=== PATIENT | female | born 2005 | race Caucasian/White ===

== ENCOUNTER 2023-03-12 21:30 | Outpatient (CLI) | payer MEDICAID, SELFPAY ==
[2023-03-12] VITALS (11 sets, daily range): BP systolic 134–191; BP diastolic 82–100; PULSE 59–78; RESP 14; BMI 35.1
--- NOTE | 2023-03-12 21:56 | USR_ITS ---
PROCEDURE INFORMATION: Exam: US Biophysical Profile Without Non-Stress Test Exam date and time: 03/12/2023 11:02 PM Age: 17 years old Clinical indication: Screening exam; Routine US screening of fetus; Third trimester (=28 weeks 0 days); ; Additional info: Decreased movement TECHNIQUE: Imaging protocol: US biophysical profile without non-stress testing. COMPARISON: No relevant prior studies available. FINDINGS: heart rate: 133 bpm presentation: Cephalic Placenta: Right and Fundal placenta without previa. Amniotic fluid: Amniotic fluid volume is low, consistent with oligohydramnios. Amniotic fluid index: CASH is 10.5 cm. BIOPHYSICAL PROFILE: breathing movement (BPP): 2/2 body movement (BPP): 2/2 tone (BPP): 2/2 Amniotic fluid (BPP): 2/2 Biophysical profile score (BPP): 8/8 MATERNAL ANATOMY: Cervix: Cervical length measures 3.8 cm. US/US OB BPP wo NST 04188 IMPRESSION: Biophysical profile score is 8/8.
[2023-03-13 00:09] VITALS: BP 154/89; PULSE 56
[2023-03-13] MEDS: acetaminophen 500 mg Tablet 1000 MG PO (00:17)
== END 2023-03-13 00:20 | disposition home or self-care (01) ==
LOC: OPOB 21:34 → OBGYN 21:37
PROVIDERS: Family Provider Nurse Practitioner Family; PCP Nurse Practitioner Family; Visit Provider Obstetrics & Gynecology
DX: O36.8190 Decreased fetal movements, unspecified trimester, not applicable or unspecified (principal); Z3A.00 Weeks of gestation of pregnancy not specified
CPT/HCPCS: 59025; 76819; 99211

== ENCOUNTER 2023-03-13 08:56 | Inpatient (IN) | payer MEDICAID, SELFPAY ==
[2023-03-13] VITALS (67 sets, daily range): BP systolic 117–176; BP diastolic 62–102; PULSE 54–106; RESP 14–17; TEMP 36.2; BMI 35.1
[2023-03-13 07:01] LABS: Basophils # 0.1 10^3/uL (0.0-0.1); Basophils % 0.6 %; Eosinophils # 0.1 10^3/uL (0.0-0.8); Eosinophils % 0.9 %; Hematocrit 37.5 % (37.0-47.0); Hemoglobin 12.1 g/dL (11.5-15.3); Lymphocytes # 2.4 10^3/uL (1.5-6.5); Lymphocytes % 26.4 %; Mean Corpuscular HGB Conc 32.3 g/dL (30.0-36.0); Mean Corpuscular Volume 80.5 fl (81-99); Mean Platelet Volume 11.3 fL (7.4-10.4); Monocytes # 0.7 10^3/uL (0.2-0.9); Monocytes % 7.1 %; Neutrophils # 5.98 10^3/uL (1.8-8.0); Neutrophils % 64.7 %; Nucleated Red Blood Cells % 0 %; Platelet Count 236 10^3/cmm (130-400); Red Blood Count 4.66 10^6/uL (4.1-5.3); Red Cell Distribution Width 12.5 % (12.1-15.1); White Blood Count 9.3 10^3/uL (4.5-13.0)
[2023-03-13 07:22] LABS: Alanine Aminotransferase 11 U/L (0-33); Albumin Level 3.6 g/dL (3.5-5.2); Alkaline Phosphatase 122 U/L (35-105); Aspartate Amino Transferase 16 U/L (0-32); Blood Urea Nitrogen 10 mg/dL (6-20); Calcium 9.5 mg/dL (8.5-10.5); Carbon Dioxide 22 mmol/L (22-29); Chloride 103 mmol/L (98-107); Globulin 3.1 g/dL (1.3-4.6); Glomerular Filtration Rate 92.4 mL/min (90-130); Glucose 73 mg/dL (65-115); Osmolality Calculated 282 mOsm/kg (285-295); Sodium 137 mmol/L (136-145); Total Bilirubin 0.2 mg/dL (0.15-1.2); Total Protein 6.7 g/dL (6.6-8.7); Uric Acid 5.8 mg/dL (2.4-5.7)
[2023-03-13 07:23] LABS: UPRO/UCREAT Ratio 0.09 mg/mg CR; Urine Creatinine 235 mg/dL (28-217); Urine Protein Random 21 mg/dL
[2023-03-13 07:33] LABS: Urine Appearance Clear (CLEAR); Urine Color Yellow (Yellow)
[2023-03-13 07:34] LABS: Add Urine Culture? No; Add Urine Microscopic? YES; Bacteria Urine TRACE /hpf; Bilirubin Urine Neg (Negative); Blood Urine 3+ (Negative); Glucose Urine UA Norm (Normal); Ketones Urine Negative (Negative); Leukocyte Esterase Urine Negative (Negative); Mucus Urine 1+ /hpf; Nitrate Urine Negative (Negative); Protein Urine Neg (Negative); Specific Gravity, Urine 1.025 (1.005-1.030); Squamous Epithelial Cell Urine 0-4 /hpf (0-5); Urobilinogen Urine Norm (Negative); WBC Urine 0-4 /hpf (0-5); pH Urine 5 (5-7)
--- NOTE | 2023-03-13 10:31 | P.HP_ITS ---
Providers/Chief Complaint Admitting Physician: Klaus Rodney MD Primary Care Provider: SOMMER Buck Chief Complaint: VAGINAL BLEEDING History of Present Illness Lauren Tubbs is a 17 year old at 39.0 weeks gestation by LMP consistent with second trimester ultrasound. Her is complicated by teen , UTI in second trimester, now with gestational hypertension with intermittent severe features. The patient sees Dr. Ramon for OB care. The patient presented to labor and delivery at [facility] due to concerns for bleeding. She was advised that it did not have any delivering doctors caregivers non medical, so she was advised to be seen elsewhere. For this reason she presented to [facility] for further evaluation. She noted that while she was at home she had spotting with some blood in the toilet and on the toilet paper. The patient admits to intermittent contractions. She denies leakage of fluid. In labor and delivery triage the patient's blood pressure was noted to be in the 130s to 160s systolic. Upon further evaluation, the patient notes that she is having headaches with seeing flashes of light that make her dizzy. She has not had elevated blood pressure during the previously. She denies any ch est pains. The patient is GBS negative by records. She is Rh- and received RhoGAM at 28 weeks gestation. Her other lab findings are normal. These will be scanned into the electronic record. Review of Systems Narrative: The patient denies nausea, vomiting, dysuria, fever, cough, sore throat. Medications/Allergies Home Medications Medication Instructions Recorded Confirmed Last Taken Type prenat.vits,gonzalo,paj-dtxf-hkoig 1 tab PO DAILY 03/12/23 03/12/23 03/11/23 History Allergies Allergy/AdvReac Type Severity Reaction Status Date / Time azithromycin [From Zithromax] Allergy ALGY-Rash Verified 03/13/23 06:24 PFSH Acute PFSH: Surgical History (Updated 03/13/23 @ 10:32 by Klaus Rodney MD) History of appendectomy History of placement of ear tubes Hx of tonsillectomy Social History (Updated 03/13/23 @ 16:29 by Klaus Rodney MD) Smoking and tobacco status: never smoked Alcohol intake: never Substance/Drug Use: never Female Reproductive History: : 1 Vitals/I&O/Wt Last Vital Signs Pulse 93 03/13/23 10:14 Resp 17 03/13/23 08:49 BP 139/80 03/13/23 10:14 O2 Del Method Room Air 03/13/23 09:01 Weight last 48 hrs Weight 186 lb Physical Exam Narrative: General: Alert and oriented x3 Eyes: Pupils equal round and reactive to light and accommodation Mouth: Mucous membranes moist, pharynx non-erythematous Cardiac: Regular rate and rhythm without murmurs Lungs: Clear to auscultation bilaterally without wheezes, crackles or rhonchi Abdomen: Soft, non-tender, fundus consistent with gestational age : Cervical exam: 2/50/-3/soft/mid/vertex Extremities: Trace edema in the bilateral lower extremities Neuro: Brisk reflexes noted in the deep tendon reflexes Data 03/13/23 06:40 03/13/23 06:40 A&P Assessment and plan (1) Supervision of normal intrauterine in primigravida: I had a discussion with the patient regarding her lab findings that showed that she does not have findings consistent with preeclampsia based on the urine protein creatinine ratio, however uric acid levels are starting to increase. Her blood pressures have been in the severe range multiple times during triage and for this reason I am concerned that she is moving towards preeclampsia. The patient does have brisk reflexes and is symptomatic with intermittent headaches and seeing flashes of light. At this point she has gestational hypertension with intermittent severe features. I discussed the recommendations for induction of labor due to this and she is in agreement to proceed with induction of labor. Her Delacruz score is 5 at this time and since she is david every 3 to 6 minutes, I feel that we can proceed with IV Pitocin for induction. The patient will have breakfast and then we will get her started. If she is not making change, then we can back up and make further changes. We will start the antihypertensive protocol. We will decrease overall activity to help decrease her blood pressures. The patient is GBS negative. All questions were answered. The patient and her mother are in agreement with current plan of care. (2) Gestational hypertension: Attestations Medical Necessity Statement*: The patient will be here for greater than 2 midnights due to routine intrapartum and management of labor and delivery. Coding Level of Care Code Acute Code for Chg Fwd Diagnoses Supervision of normal intrauterine in primigravida Z34.00 Gestational hypertension O13.9
[2023-03-13] MEDS: dextrose 5%-lactated ringers 1,000 ML 125 ML IV (10:34)
[2023-03-13 15:26] LABS: Amphetamines Screen Urine Negative (Negative); Barbiturates Screen Urine Negative (Negative); Benzodiazepines Screen Urine Negative (Negative); Cocaine Screen Urine Negative (Negative); Opiate Screen Urine Negative (Negative); PCP Screen Urine Negative (Negative); THC Screen Urine Negative (Negative)
[2023-03-13] MEDS: miSOPROStol 100 mcg tablet 25 MCG VAGINAL (20:09)
[2023-03-14] VITALS (58 sets, daily range): BP systolic 121–177; BP diastolic 60–114; PULSE 62–125; RESP 16–18; TEMP 35.5–37; O2SAT 97–99
[2023-03-14] MEDS: miSOPROStol 100 mcg tablet 25 MCG VAGINAL ×2 (00:09→04:09)
--- NOTE | 2023-03-14 06:49 | PM.PN ---
Subjective Subjective: The patient is starting to feel contractions over the last hour. She feels well otherwise. Her blood pressures have been in a good range. She denies any chest pains or shortness of breath at this time. Vitals/I&O/Wt Last Vital Signs Temp 97.2 F L 03/13/23 22:05 Pulse 86 03/14/23 06:14 Resp 17 03/13/23 08:49 BP 138/79 03/14/23 06:14 O2 Del Method Room Air 03/14/23 06:41 03/13/23 03/13/23 03/14/23 14:59 22:59 06:59 Intake Total 25.867 / 25.867 1091 / 1116.867 Balance 25.867 / 25.867 1091 / 1116.867 Weight last 48 hrs Weight 186 lb Physical Exam Narrative: General: Alert and oriented x3 Cardiac: Regular rate and rhythm without murmurs Lungs: Clear to auscultation bilaterally without wheezes, crackles or rhonchi Abdomen: Soft, mild lower uterine tenderness to palpation, fundus consistent with gestational age Extremities: Trace edema in the bilateral lower extremities Data 03/13/23 06:40 03/13/23 06:40 A&P Assessment and plan (1) Supervision of normal intrauterine in primigravida: The patient was started on IV Pitocin yesterday morning and was having regular contractions, however did not make change by the evening. For this reason the IV Pitocin was stopped and she was allowed to eat dinner. We then we started her on Cytotec as her contractions had spaced out. The patient received 3 doses of Cytotec overnight with her last being at 4:09 AM. The patient is now david every 2 to 4 minutes and they are becoming more painful. Her last check she was 370/-3. We will plan to see how she does at 8:00 and if needed augment labor with Pitocin. If she continues to make change on her own, then this will not be needed. The patient may have a laboring epidural when desired. (2) Gestational hypertension: The patient's blood pressures have decreased well with limited activity. They are now no longer in the severe range. We will continue to keep the lights low and activity levels down. Continue with antihypertensive protocol as needed. Attestations Medical Necessity Statement*: The patient continues need inpatient care and her stay will cross 2 midnights for routine intrapartum and management of labor and delivery. Coding Level of Care Code Acute Code for Chg Fwd Diagnoses Supervision of normal intrauterine in primigravida Z34.00 Gestational hypertension O13.9
[2023-03-14] MEDS: labetalol 5 mg/mL SDV 20mL 20 MG IVP ×2 (08:50→09:20)
[2023-03-14] MEDS: butorphanol 2 mg/mL SDV 1 mL 1 MG IVP (09:01)
[2023-03-14] MEDS: lactated ringers 1,000 ML 999 ML IV (09:03)
--- NOTE | 2023-03-14 10:21 | P.ANES_ITS ---
Anesthesia Procedures Procedure/Date: 03/14/23 labor epidural Epidural: Time Out Performed: Yes Consents Signed: Procedure Consent Consent: from patient, risks and benefits reviewed and patient agrees to proceed Lumbar Level: L3-L4 Epidural position: sitting Epidural procedure: sterile prep of area, 1% lidocaine to numb the area, 18 g needle, negative for paresthesia passed, test dose given, 1.5% xylocaine 1:200k epi, placed PCEA, no systemic response, sterile dressing applied, L.U.D. no apparent complications a nd 0.2% Ropiavacaine @ mls/hr (13) Additional Comments: HENRIQUE at 6, taped at 13 at skin.
--- NOTE | 2023-03-14 10:22 | P.ANESASSM_ITS ---
Pre-Anesthetic Assessment Height/Weight: Height 1.55 m Weight 84.368 kg Temp Pulse Resp BP Pulse Ox O2 Del Method 96.6 F L 79 17 163/114 99 Room Air 03/14/23 07:46 03/14/23 10:20 03/13/23 08:49 03/14/23 10:20 03/14/23 10:16 03/14/23 06:41 Preop Diagnosis: IUP epidural Familial anesthetic complications: none Was Beta Verena taken within 24 hours: N/A Was Clonidine taken within 24 hours: N/A Last intake: currently on clears Social No alcohol and No tobacco Exam alert and oriented x 3 Airway Submandibular: within normal limits Cervical ROM: within normal limits Mallampati: Class III Dentition: full History/ROS No significant history except as noted Pulmonary None reported CV/HEM Hypertension (gestational) None reported Hepatic None reported GI None reported Metabolic None reported Musc/skel None reported Neuropsych None reported Anesthetic Plan ASA status: 2 Anesthesia: Anesthesia Evaluation and Regional (specify below) Medications/Allergies Home Medications Medication Instructions Recorded Confirmed Last Taken Type prenat.vits,gonzalo,nod-gbhn-wctrb 1 tab PO DAILY 03/12/23 03/12/23 03/11/23 History Allergies Allergy/AdvReac Type Severity Reaction Status Date / Time azithromycin [From Zithromax] Allergy ALGY-Rash Verified 03/13/23 06:24 Current Medications Generic Name Dose Route Start Last Admin Trade Name Freq PRN Reason Stop Dose Admin Butorphanol Tartrate 1 mg 03/13/23 08:49 03/14/23 09:01 Butorphanol 2 Mg/Ml Sdv 1 Ml IVP 1 mg Q2H PRN Administration SEVERE PAIN Dextrose/Lactated Ringer's 1,000 mls @ 125 mls/hr 03/13/23 09:00 03/13/23 1 9:39 Dextrose 5%-Lactated Ringers IV Infused .Q8H KIKA Infusion Oxytocin 30 unit in 500 mls @ 1 mls/hr 03/13/23 10:00 03/13/23 19:40 Pitocin IV Not Given .Q24H KIKA Protocol 1 MILLIUNIT/MIN Oxytocin 30 unit/ Sodium 503 mls @ 1 mls/hr 03/13/23 10:00 03/13/23 18:10 Chloride IV 0 mls/hr .Q24H KIKA 0 mls/hr Titration Protocol Lactated Ringer's 1,000 mls @ 999 mls/hr 03/14/23 08:51 03/14/23 09:03 Lactated Ringers IV 999 mls/hr .Q1H1M PRN Administration See label comments Labetalol HCl 20 mg 03/13/23 08:49 03/14/23 09:20 Labetalol 5 Mg/Ml Sdv 20ml IVP 20 mg PRN PRN Administration HYPERTENSION Protocol Misoprostol 25 mcg 03/13/23 23:37 03/14/23 04:09 Misoprostol 100 Mcg Tablet VAGINAL 25 mcg Q4H PRN Administration induction PFSH Anesthesia Surgical History (Updated 03/13/23 @ 10:32 by Klaus Rdoney MD) History of appendectomy History of placement of ear tubes Hx of tonsillectomy Social History (Updated 03/13/23 @ 16:29 by Klaus Rodney MD) Smoking and tobacco status: never smoked Alcohol intake: never Substance/Drug Use: never Female Reproductive History : 1 Data Anesthesia 03/13/23 06:40 03/13/23 06:40 Short CBC 03/13/23 Range/Units 06:40 WBC 9.3 (4.5-13.0) 10^3/uL Hgb 12.1 (11.5-15.3) g/dL Hct 37.5 (37.0-47.0) % MCV 80.5 L (81-99) fl Plt Count 236 (130-400) 10^3/cmm Neut % (Auto) 64.7 % Neut # (Auto) 5.98 (1.8-8.0) 10^3/uL BMP 03/13/23 06:40 Sodium 137 Potassium 4.0 Chloride 103 Carbon Dioxide 22 BUN 10 Creatinine 0.8 Glucose 73 Calcium 9.5 Liver Function 03/13/23 Range/Units 06:40 Total Bilirubin 0.2 (0.15-1.2) mg/dL AST 16 (0-32) U/L ALT 11 (0-33) U/L Alkaline Phosphatase 122 H (35-105) U/L Albumin 3.6 (3.5-5.2) g/dL Urine 03/13/23 Range/Units 06:40 Urine Color Yellow (Yellow) Urine Appearance Clear (CLEAR) Urine pH 5 (5-7) Ur Specific [place] 1.025 (1.005-1.030) Urine Protein Neg (Negative) Urine Glucose (UA) Norm (Normal) Urine Ketones Negative (Negative) Urine Nitrate Negative (Negative) Urine Bilirubin Neg (Negative) Ur Leukocyte Esterase Negative (Negative) Urine RBC 5-10 H (0-2) /hpf Urine WBC 0-4 H (0-5) /hpf Blood Bank 03/13/23 06:40 Blood Type A Negative Rho(D) Type Negative Antibody Screen Not Reportable Cardiac Studies: No Data to Display
--- NOTE | 2023-03-14 14:45 | P.PCNOB_ITS ---
Delivery Note: Date of delivery: March 14, 2023 Pre-Delivery Course: Lauren Tubbs is a 17 year old G1 now P1 status post spontaneous vaginal delivery at 39.1 weeks gestation by LMP consistent with second trimester ultrasound.? Her was complicated by teen , UTI in second trimester, now with gestational hypertension with intermittent severe features. The patient sees Dr. Ramon for OB care.? The patient presented to labor and delivery at [facility] due to concerns for bleeding.? She was advised that it did not have any delivering doctors fashion director party plan sales, so she was advised to be seen elsewhere.? For this reason she presented to [facility] for further evaluation.? She noted that while she was at home she had spotting with some blood in the toilet and on the toilet paper.? The patient admitted to intermittent contractions.? She denied leakage of fluid. In labor and delivery triage the patient's blood pressure was noted to be in the 130s to 160s systolic.? Upon further evaluation, the patient noted that she was having headaches with seeing flashes of light that made her dizzy.? She had not had elevated blood pressure during the previously.? She denied any chest pains. The patient is GBS negative by records.? She is Rh- and received RhoGAM at 28 weeks gestation. The patient was started on IV Pitocin on the morning of 03/13/2023. She contracted well every 2 to 3 minutes with this but by the evening she had not made any cervical change and continued to be at 2 cm dilation. For this reason, and the Pitocin was stopped and she was allowed to eat dinner. She was then given Cytotec x3 doses. With this she began to have regular contractions and made change on her own. She continued to make steady change and had spontaneous rupture membranes at 8:40 AM on 03/14/2023. The patient then received a laboring epidural. The patient continued to make change and was complete by 12:53 PM on 03/14/2023. There were no concerning heart tones during the labor process. The patient did have a few elevated blood pressures during her labor process and received labetalol when needed. Delivery: The patient began pushing at 1306 on 03/14/2023. The patient pushed well and the infant delivered in the OA position at 1419 on 03/14/2023. There was no nuchal cord. The left shoulder was the anterior shoulder and it delivered with ease. The rest of the delivered with ease. The infant's mouth and nose were bulb suctioned by myself and the was placed on the mother's chest where the nurses were waiting to care for him. He initially made signs that he would start breathing, however did not take a breath, so after approximately 40 seconds, the umbilical cord was clamped by myself and cut by the infant's father. The was taken to the warmer for further evaluation. Cord blood was obtained. The cord was then drained of blood and traction was placed on the umbilical cord. The placenta delivered without complication at 1426 on 03/14/2023. Initially there was a large amount of bleeding that was steady. IV Pitocin was bolused and uterine massage was carried out the bleeding slowed down significantly. The cervix was inspected and no lacerations were noted. The vaginal wall was inspected and the patient had 3 first-degree lacerations. One on the right vaginal sidewall, 1 on the posterior vaginal wall and 1 on the left vaginal wall. These were not bleeding and did not need suturing. Currently both the mother and are doing well. History History History 1 Term 1 0 Miscarriages/Ectopic 0 Living Children 1 Past Pregnancies Del. Date GA/Weeks Outcome Route Wt Inf Gender Labor Lgth Comp. Anesth esia Location 03/14/23 39 live - full term Vaginal Male 30 Low a pgars [facility] [place] Delivery Date: 03/14/23 Last Updated by: Klaus Rodney MD Gestational hypertension with intermittent severe features, Apgars of 2 and 9 A&P Assessment and plan (1) Gestational hypertension: (2) Supervision of normal intrauterine in primigravida: Coding Level of Care Code Acute Code for Chg Fwd Diagnoses Gestational hypertension O13.9 Supervision of normal intrauterine in primigravida Z34.00
[2023-03-14] MEDS: lanolin oint 7 gm 1 APPLIC TOPICAL (17:57)
[2023-03-14] MEDS: benzocaine-menthol 78 gm Canister 1 SPRAY TOPICAL (17:57)
[2023-03-14] MEDS: ibuprofen 800 mg tablet PO (21:17)
[2023-03-15 00:15] VITALS: BP 119/75; PULSE 76; RESP 18; TEMP 36.8; O2SAT 97
[2023-03-15 02:42] LABS: Hematocrit 25.5 % (37.0-47.0); Hemoglobin 8.2 g/dL (11.5-15.3); Mean Corpuscular HGB Conc 32.2 g/dL (30.0-36.0); Mean Platelet Volume 11.4 fL (7.4-10.4); Platelet Count 167 10^3/cmm (130-400); Red Blood Count 3.15 10^6/uL (4.1-5.3); Red Cell Distribution Width 12.7 % (12.1-15.1); White Blood Count 12.7 10^3/uL (4.5-13.0)
[2023-03-15 04:00] VITALS: BP 120/70; PULSE 76; RESP 18; TEMP 36.8; O2SAT 98
[2023-03-15] MEDS: docusate sodium 100 mg Capsule PO (09:02)
[2023-03-15] MEDS: ibuprofen 800 mg tablet PO ×3 (09:02→21:07)
[2023-03-15] MEDS: prenatal vitamin Capsule 1 CAP PO (09:02)
[2023-03-15 09:09] VITALS: BP 126/83; PULSE 76; RESP 16; TEMP 36.7; O2SAT 98
--- NOTE | 2023-03-15 13:01 | PM.PN ---
Subjective Subjective: The patient is doing well today. She denies headaches, nausea, flashes of light. She is ambulating, voiding, passing gas and tolerating foodby mouth. Her BP's have been in a good range. No dizziness at this point. Vitals/I&O/Wt Last Vital Signs Temp 98.0 F 03/15/23 09:09 Pulse 76 03/15/23 09:09 Resp 16 03/15/23 09:09 BP 126/83 03/15/23 09:09 Pulse Ox 98 03/15/23 09:09 O2 Del Method Room Air 03/15/23 09:09 03/14/23 03/15/23 03/15/23 22:59 06:59 14:59 Output Total 675 / 750 1000 / 1000 Balance -675 / -750 -1000 / -1000 Physical Exam Narrative: General: Alert and oriented x3 Cardiac: Regular rate and rhythm without murmurs Lungs: Clear to auscultation bilaterally without wheezes, crackles or rhonchi Abdomen: Soft, mild tenderness over uterus. The uterus is firm and 2 cm below the umbilicus. Extremities: Trace edema in the bilateral lower extremities Neuro: Brisk DTR's noted. Urinary Catheter Management: Rocha Latex: Cath Placed During This Visit: yes, but has since been removed by the nurse Reason for Continuing Indwelling Catheter: Required Immobilization for Trauma or Surgery or Anesthesia Urinary Catheter Date of Insertion: 03/14/23 Urinary Catheter Time of Insertion: 10:55 Date Urinary Catheter Removed: 03/14/23 Time Urinary Catheter Discontinued: 13:04 Data 03/15/23 02:28 03/13/23 06:40 A&P Assessment and plan (1) Gestational hypertension: The patient's blood pressures are in a good range at this point. We will continue with monitoring them. Plan for discharge home tomorrow as long as she stays stable. (2) Spontaneous vaginal delivery: The patient is doing well overall. Continue with routine care. Attestations Medical Necessity Statement*: The patient continues need inpatient care due to routine intrapartum and management of labor and delivery. Her stay will cross 2 midnights. Coding Level of Care Code Acute Code for Chg Fwd Diagnoses Gestational hypertension O13.9 Spontaneous vaginal delivery O80
[2023-03-15] MEDS: ferrous sulfate EC 325 mg Tablet PO (15:52)
[2023-03-15 16:01] VITALS: BP 142/90; PULSE 73; RESP 16; TEMP 36.4; O2SAT 97
[2023-03-15 21:00] VITALS: BP 120/78; PULSE 68; RESP 18; TEMP 36.7; O2SAT 99
[2023-03-16 04:20] VITALS: BP 119/72; PULSE 59; RESP 18; TEMP 36.8; O2SAT 98
[2023-03-16] MEDS: ferrous sulfate EC 325 mg Tablet PO (08:47)
[2023-03-16] MEDS: ibuprofen 800 mg tablet PO (08:47)
[2023-03-16] MEDS: prenatal vitamin Capsule 1 CAP PO (08:47)
[2023-03-16] MEDS: docusate sodium 100 mg Capsule PO (08:47)
--- NOTE | 2023-03-16 09:08 | P.DS_ITS ---
Discharge Providers Date of Admission: 03/13/23 08:56 Date of Discharge: March 16, 2023 Attending Provider at Admission: Klaus Rodney MD Attending Provider at Discharge: Klaus Rodney MD Primary Care Provider: SOMMER Buck Diagnoses at Discharge Discharge Diagnosis (1) Gestational hypertension: Status: Acute (2) Spontaneous vaginal delivery: Status: Acute Other Information Additional DC diagnoses/information: 1. Intrauterine status post spontaneous vaginal delivery at 39.1 weeks gestation 2. Gestational hypertension with intermittent severe features 3. Teen 4. UTI and second trimester 5. Delivery of healthy male with Apgars of 2 and 9 Reason for Visit Reason for Visit: VAGINAL BLEEDING Brief History: Lauren Tubbs is a 17 year old G1 now P1 status post spontaneous vaginal delivery at 39.1 weeks gestation by LMP consistent with second trimester ultrasound.? Her was complicated by teen , UTI in second trimester, now with gestational hypertension with intermittent severe features. The patient sees Dr. Ramon for OB care.? The patient presented to labor and delivery at [facility] due to concerns for bleeding.? She was advised that it did not have any delivering doctors procurement professional, so she was advised to be seen elsewhere.? For this reason she presented to [facility] for further evaluation.? She noted that while she was at home she had spotting with some blood in the toilet and on the toilet paper.? The patient admitted to intermittent contractions.? She denied leakage of fluid. In labor and delivery triage the patient's blood pressure was noted to be in the 130s to 160s systolic.? Upon further evaluation, the patient noted that she was having headaches with seeing flashes of light that made her dizzy.? She had not had elevated blood pressure during the previously.? She denied any chest pains. The patient is GBS negative by records.? She is Rh- and received RhoGAM at 28 weeks gestation. Hospital Course Hospital Course The patient was started on IV Pitocin on the morning of 03/13/2023.? She contracted well every 2 to 3 minutes with this but by the evening she had not made any cervical change and continued to be at 2 cm dilation.? For this reason, and the Pitocin was stopped and she was allowed to eat dinner.? She was then given Cytotec x3 doses.? With this she began to have regular contractions and made change on her own.? She continued to make steady change and had spontaneous rupture membranes at 8:40 AM on 03/14/2023.? The patient then received a laboring epidural.? The patient continued to make change and was complete by 12:53 PM on 03/14/2023.? There were no concerning heart tones during the labor process.? The patient did have a few elevated blood pressures during her labor process and received labetalol when needed. The patient began pushing at 1306 on 03/14/2023.? The patient pushed well and the delivered in the OA position at 1419 on 03/14/2023.? There was no nuchal cord.? The left shoulder was the anterior shoulder and it delivered with ease.? The rest of the delivered with ease.? The 's mouth and nose were bulb suctioned by myself and the infant was placed on the mother's chest where the nurses were waiting to care for him.? He initially made signs that he would start breathing, however did not take a breath, so after approximately 40 seconds, the umbilical cord was clamped by myself and cut by the infant's father.? The infant was taken to the warmer for further evaluation.? Cord blood was obtained.? The cord was then drained of blood and traction was placed on the umbilical cord.? The placenta delivered without complication at 1426 on 03/14/2023.? Initially there was a large amount of bleeding that was steady.? IV Pitocin was bolused and uterine massage was carried out the bleeding slowed down significantly.? The cervix was inspected and no lacerations were noted.? The vaginal wall was inspected and the patient had 3 first-degree lacerations.? One on the right vaginal sidewall, 1 on the posterior vaginal wall and 1 on the left vaginal wall.? These were not bleeding and did not need suturing.? The infant was initially apneic, with an of 2 at 1 minute, however with positive pressure ventilation he perked up quickly and had an of 9 at 5 minutes. He is currently doing well. the patient has done well. Her blood pressures have gradually decreased and are no longer in the severe range. She is asymptomatic and denies headaches, flashes of light, chest pains, nausea, vomiting. She is eating, voiding, passing gas and tolerating food by mouth. Her pain is well controlled. The patient will be discharged home today. Routine discharge instructions were discussed as well as instructions to keep overall activity levels decreased for the next week to help allow her body to heal after having elevated blood pressure. She is to take her blood pressure at home twice a day and bring back readings in 1 week for evaluation. The patient requested to see myself for follow-up. Physical Exam Narrative: General: Alert and oriented x3 Cardiac: Regular rate and rhythm without murmurs Lungs: Clear to auscultation bilaterally without wheezes, crackles or rhonchi Abdomen: Soft, mild tenderness over uterus. The uterus is firm and 2 cm below the umbilicus. Extremities: +1 pitting edema in the bilateral lower extremities Urinary Catheter Management: Rocha Latex: Cath Placed During This Visit: yes, but has since been removed by the nurse Reason for Continuing Indwelling Catheter: Required Immobilization for Trauma or Surgery or Anesthesia Urinary Catheter Date of Insertion: 03/14/23 Urinary Catheter Time of Insertion: 10:55 Date Urinary Catheter Removed: 03/14/23 Time Urinary Catheter Discontinued: 13:04 Discharge Data Studies Completed and Pending Laboratory Results WBC 12.7 10^3/uL (4.5-13.0) 03/15/23 02:28 RBC 3.15 10^6/uL (4.1-5.3) L 03/15/23 02:28 Hgb 8.2 g/dL (11.5-15.3) L 03/15/23 02:28 Hct 25.5 % (37.0-47.0) L 03/15/23 02:28 MCV 81.0 fl (81-99) 03/15/23 02:28 MCH 26.0 pg (28.0-34.0) L 03/15/23 02:28 MCHC 32.2 g/dL (30.0-36.0) 03/15/23 02:28 RDW 12.7 % (12.1-15.1) 03/15/23 02:28 Plt Count 167 10^3/cmm (130-400) 03/15/23 02:28 MPV 11.4 fL (7.4-10.4) H 03/15/23 02:28 Neut % (Auto) 64.7 % 03/13/23 06:40 Lymph % (Auto) 26.4 % 03/13/23 06:40 [place] % (Auto) 7.1 % 03/13/23 06:40 Eos % (Auto) 0.9 % 03/13/23 06:40 Baso % (Auto) 0.6 % 03/13/23 06:40 Neut # (Auto) 5.98 10^3/uL (1.8-8.0) 03/13/23 06:40 Lymph # (Auto) 2.4 10^3/uL (1.5-6.5) 03/13/23 06:40 [place] # (Auto) 0.7 10^3/uL (0.2-0.9) 03/13/23 06:40 Eos # (Auto) 0.1 10^3/uL (0.0-0.8) 03/13/23 06:40 Baso # (Auto) 0.1 10^3/uL (0.0-0.1) 03/13/23 06:40 Nucleated RBC % (auto) 0 % 03/13/23 06:40 Nucleated RBCs # 0.0 /100WBC 03/13/23 06:40 Sodium 137 mmol/L (136-145) 03/13/23 06:40 Potassium 4.0 mmol/L (3.5-5.1) 03/13/23 06:40 Chloride 103 mmol/L (98-107) 03/13/23 06:40 Carbon Dioxide 22 mmol/L (22-29) 03/13/23 06:40 Anion Gap 16.0 (5-19) 03/13/23 06:40 BUN 10 mg/dL (6-20) 03/13/23 06:40 Creatinine 0.8 mg/dL (0.5-0.9) 03/13/23 06:40 GFR Calculation 92.4 mL/min (90-130) 03/13/23 06:40 Glucose 73 mg/dL (65-115) 03/13/23 06:40 Calculated Osmolality 282 mOsm/kg (285-295) L 03/13/23 06:40 Uric Acid 5.8 mg/dL (2.4-5.7) H 03/13/23 06:40 Calcium 9.5 mg/dL (8.5-10.5) 03/13/23 06:40 Total Bilirubin 0.2 mg/dL (0.15-1.2) 03/13/23 06:40 AST 16 U/L (0-32) 03/13/23 06:40 ALT 11 U/L (0-33) 03/13/23 06:40 Alkaline Phosphatase 122 U/L (35-105) H 03/13/23 06:40 Total Protein 6.7 g/dL (6.6-8.7) 03/13/23 06:40 Albumin 3.6 g/dL (3.5-5.2) 03/13/23 06:40 Globulin 3.1 g/dL (1.3-4.6) 03/13/23 06:40 Urine Color Yellow (Yellow) 03/13/23 06:40 Urine Appearance Clear (CLEAR) 03/13/23 06:40 Urine pH 5 (5-7) 03/13/23 06:40 Ur Specific [place] 1.025 (1.005-1.030) 03/13/23 06:40 Urine Protein Neg (Negative) 03/13/23 06:40 Urine Glucose (UA) Norm (Normal) 03/13/23 06:40 Urine Ketones Negative (Negative) 03/13/23 06:40 Urine Blood 3+ (Negative) H 03/13/23 06:40 Urine Nitrate Negative (Negative) 03/13/23 06:40 Urine Bilirubin Neg (Negative) 03/13/23 06:40 Urine Urobilinogen Norm mg/dL (Negative) 03/13/23 06:40 Ur Leukocyte Esterase Negative (Negative) 03/13/23 06:40 Urine RBC 5-10 /hpf (0-2) H 03/13/23 06:40 Urine WBC 0-4 /hpf (0-5) H 03/13/23 06:40 Ur Squamous Epith Cells 0-4 /hpf (0-5) H 03/13/23 06:40 Amorphous Sediment Not Reportable 03/13/23 06:40 Urine Bacteria Trace /hpf (NONE) 03/13/23 06:40 Urine Mucus 1+ /hpf 03/13/23 06:40 U Random Total Protein 21 mg/dL 03/13/23 06:40 Urine Creatinine 235 mg/dL (28-217) H 03/13/23 06:40 Protein/Creatinin Ratio 0.09 mg/mg CR 03/13/23 06:40 Urine Opiates Screen Negative ng/mL (Negative) 03/13/23 06:40 Ur Barbiturates Screen Negative ng/mL (Negative) 03/13/23 06:40 Ur Phencyclidine Scrn Negative ng/mL (Negative) 03/13/23 06:40 Ur Amphetamines Screen Negative ng/mL (Negative) 03/13/23 06:40 U Benzodiazepines Scrn Negative ng/mL (Negative) 03/13/23 06:40 Urine Cocaine Screen Negative ng/mL (Negative) 03/13/23 06:40 U Marijuana (THC) Screen Negative ng/mL (Negative) 03/13/23 06:40 Blood Type A Negative 03/13/23 06:40 Rho(D) Type Negative 03/13/23 06:40 Antibody Screen Not Reportable 03/13/23 06:40 PEG Antibody Screen Negative 03/13/23 06:40 Vitals Last Vital Signs Temp 98.2 F 03/16/23 04:20 Pulse 59 L 03/16/23 04:20 Resp 18 03/16/23 04:20 BP 119/72 03/16/23 04:20 Pulse Ox 98 03/16/23 04:20 O2 Del Method Room Air 03/16/23 04:20 Discharge Plan Discharge Patient Disposition: Home Condition: Good Prescriptions: New ibuprofen 800 mg Tablet 800 mg PO TID Qty: 30 0RF ferrous sulfate 325 mg (65 mg iron) Tablet,Delayed Release (Dr/Ec) 325 mg PO BIDWM Qty: 60 0RF Continued Vitamin Tablet 1 tab PO DAILY Discharge Orders: Discharge Order (Routine); Ordered 03/16/23 Ordered By: Klaus Rodney Referrals: Klaus Rodney MD [Physician] - 1 week (Call Dr. Rodney's office for an appointment in 1 week and bring her blood pressure readings with you.) Discharge Diet: Regular Discharge Activity: Limit activity as instructed Patient Instructions: Opioid Safety Activity Restrictions/Additional Instructions: Keep her overall activity levels low for the next week especially to allow your body to heal after the high blood pressure. Take your blood pressure twice a day and bring readings to next appointment. Nothing per vagina for 6 weeks. I would recommend showers instead of baths. Discharge Attestations Time Spent in Discharge Care*: greater than 30 min Quality Metrics Clinical Quality Measures [ No reported AMI, CVA or VTE this stay] Coding Level of Care Code Acute Code for Chg Fwd Diagnoses Gestational hypertension O13.9 Spontaneous vaginal delivery O80
[2023-03-16 10:25] VITALS: BP 150/85; PULSE 70; RESP 16; TEMP 36.7; O2SAT 97
--- NOTE | 2023-03-17 07:39 | ANE.PACU2 ---
Inpatient post-anesthesia follow up: Airway intact: Yes Vital signs: Temperature 98.1 F Pulse Rate 70 Respiratory Rate 16 Blood Pressure 150/85 Pulse Oximetry 97 Oxygen Delivery Me thod Room Air Oxygen Flow Rate Fraction of Inspir ed Oxygen Hydration adequate: Yes Nausea and vomiting: No Pain level: 2 Mental status: Baseline
== END 2023-03-16 10:40 | disposition home or self-care (01) | DRG 806 ==
LOC: OPOB 08:58 → OBGYN 08:58
PROVIDERS: Admitting Provider Family Medicine; PCP Nurse Practitioner Family; Visit Provider Family Medicine
DX: O13.4 Gestational [pregnancy-induced] hypertension without significant proteinuria, complicating childbirth (principal); O36.0930 Maternal care for other rhesus isoimmunization, third trimester, not applicable or unspecified; Z37.0 Single live birth; O70.0 First degree perineal laceration during delivery; Z3A.39 39 weeks gestation of pregnancy
CPT/HCPCS: 36415; 51702; 59025; 59409; 80053; 80306; 81001; 82570; 84156; 84550; 85025; 85027; 86850; 86900; 99211; J0595; J3490; J7040; J7120; J7121